=== PATIENT | female | born 1940 | race Caucasian/White ===

== ENCOUNTER → 2023-08-17 10:01 | Outpatient (REF) | payer OTHER, SELFPAY ==
[2023-08-17 10:26] LABS: HDL Cholesterol 42 mg/dl; LDL Cholesterol, Calculated 57 mg/dl; Total Cholesterol 126 mg/dl (50-199); Triglyceride 138 mg/dl (10-149); Very Low Density Lipoprotein 27 mg/dl (0-30)
== END ==
LOC: OLABN 10:01
PROVIDERS: ATTENDING PHYSICIAN Student in an Organized Health Care Education/Training Program
DX: E78.5 Hyperlipidemia, unspecified (principal)
CPT/HCPCS: 36415; 80061

== ENCOUNTER → 2024-04-01 13:19 | Outpatient (REF) | payer MEDICARE, MEDICAID, SELFPAY ==
[2024-04-01 21:55] LABS: Urine Albumin Trace (Neg - Trace); Urine Bilirubin Negative (Negative); Urine Character Very Cloudy (Clear); Urine Color Yellow; Urine Glucose Negative (Negative); Urine Ketone Negative (Negative); Urine Leukocyte 1+ (Negative); Urine Nitrite Negative (Negative); Urine Occult Blood Negative (Negative); Urine Specific Gravity 1.015 (<1.030); Urine Urobilinogen Negative (Neg - 1+)
[2024-04-01 22:45] LABS: Urine Bacteria Many (Negative); Urine Red Blood Cell 0-2 /HPF (0-2); Urine White Cell 60-70 /HPF (0-5)
== END ==
LOC: OLABN 13:19
PROVIDERS: ATTENDING PHYSICIAN Student in an Organized Health Care Education/Training Program
DX: R35.0 Frequency of micturition (principal); R82.90 Unspecified abnormal findings in urine
CPT/HCPCS: 81003; 81015; 87086

== ENCOUNTER 2024-06-12 22:41 | Inpatient (IN) | payer MEDICARE, MEDICAID, SELFPAY ==
[2024-06-12] VITALS (8 sets, daily range): BP systolic 79–104; BP diastolic 45–57
[2024-06-12] MEDS: NSS 1000 IV (20:09)
--- NOTE | 2024-06-12 20:09 | ED.GENMED ---
History of Present Illness
General
Chief Complaint: Breathing Problem
Source: family and ambulance crew
Exam Limitations: none
Time Seen by Provider: 06/12/24 19:15
History of Present Illness
History of Present Illness:
83-year-old female was found unresponsive in her room. Seen in our earlier. Patient was cyanotic hypotensive unresponsive. They put her on oxygen. She was breathing however. On medic arrival this was about 6:10 that this started, her color was
good on the nonrebreather. However they could not really palpate her pulse although they can hear her heart rate. She was given two 500 L bags of fluid with resolution of most of her symptoms. Her blood sugar was stable at the time. Patient does
not recall the event and had complaints
Past History
Past History
ED Past Medical History: HTN, Hypercholesterolemia and Other (Dementia)
ED Past Surgical History: Cardiac and Orthopedic
Review of Systems
Review of Systems
All Other Systems: Not applicable
Respiratory: Reports no symptoms
Cardiac: Denies chest pain
ABD/GI: Reports no symptoms
Phy Exam
Physical Exam
Physical Exam:
GENERAL: Alert and oriented. Elderly and frail. Hypotensive. Warm and dry and perfusing however
EYE: Orbits normal.
NECK: Supple, no significant adenopathy.
ENT: Pharynx without erythema
CARDIAC: Bradycardic and regular no murmur
LUNGS: Clear breath sounds,normal
ABDOMEN: Soft, without focal tenderness or distention
NEUROLOGICAL: Alert and oriented , grossly non-focal. Mild slurred this apparently has baseline
SKIN: Warm and dry, no rash or lesion, no discoloration, skin intact.
MUSCULOSKELETAL: No edema,no deformity.Good color
PSYCH: Normal and appropriate interaction.
Scores
Heart Failure Risk
Heart Failure Risk Score: Not Applicable
Sepsis
Sepsis Screening
Sepsis Assessment: Sepsis
Sepsis Screen
Sepsis Screen: Sepsis
Date: 06/12/24
Time: 23:03
Course
Orders/Labs/Results
Orders:
Orders
06/12/24 19:28
Electrocardiogram (*1) Stat
Reason for Study: Other
Other Reason for Exam: neuro symptoms
CT Head W/o Iv Contrast Urgent
Comment:
Reason For Exam: Transient loss of conscious
Cardiac Monitoring- Treatment ONCE
EKG- Treatment ONCE
IV Insert/Care/Rem.- Treatment PRN
Straight cath- Treatment ONCE
Pulse Ox/cont/shift [RESP] Stat
Quantity: 1
06/12/24 20:04
Complete Blood Count/With Diff Urgent
Comprehensive Metabolic Panel Urgent
Troponin I Urgent
06/12/24 20:05
0.9% Sodium Chloride 1000 ml [Nss] 1,000 ml IV BOLUS
06/12/24 20:36
Urinalysis Reflex To Culture Urgent
Date Specimen was Collected: 06/12/24
Time Specimen was Collected: 20:33
Urine Microscopic Reflex Cult Urgent
Urine Culture Urgent
ERNIE Source: U
Specimen Description:
Date Specimen was Collected: 06/12/24
Time Specimen was Collected: 20:33
06/12/24 21:26
D-Dimer Urgent
CefTRIAXone [Rocephin] 1,000 mg IV NOW STA
06/12/24 22:02
Lactate Level [Lactic Acid] Stat
Lactated Ringers [Lr] 500 ml IV BOLUS
06/12/24 22:18
Admit/Transfer Patient As Directed
Co-Sign Provider:
Level of Care: Inpatient admission
Assign to:: Telemetry
Physician / Group: Fran Cortez
Diagnosis: Clinical sepsis with UTI
Reason for Telemetry: Other
Other Reason for Telemetry: sepsis
Date to Stop Telemetry: 06/14/24
Time to Stop Telemetry: 11:00
Reason for Hospitalization: Clinical sepsis with UTI
Expected length of stay greater than two midnights?: Yes
ELOS- Estimated Length of Stay in days: 3
I certify the patient meets the requirements for IP care: Yes
PRN Pain Medication Management As Directed
May give lesser potent ordered pain med per pt: Yes
preference::
Protocol:: Medication orders for pain may be administered in a
manner that supports deferring to patient preference
when the pt is:
- Requesting an ordered lesser potent pain medication.
Least to most potent pain medications are defined
as: acetaminophen < NSAID < tramadol < opioids
(morphine, oxycodone, hydromorphone).
- Requesting a lesser dose of the same medication IF
ORDERED.
- Requesting a less intrusive route of administration
if both routes are prescribed by the provider (PO <
IV).
06/12/24 22:20
Code Status As Directed
Resuscitation Status: Do not resuscitate
Based on pt advanced directive or healthcare POA form: Yes
Physician note:: reviewed POLST from [facility]
DNR Bracelet Application ONCE
06/12/24 23:00
Flush (0.9% Sodium Chloride) [Flush (Nss)] See Dose Instructions IV PER PROTOCOL
06/14/24 11:00
DC Protocol for Telemetry ONCE
Abnormal Lab Results
06/12/24 06/12/24
20:04 20:36
RBC 3.03 L 10^6/uL
(4.20-5.40)
Hgb 10.2 L g/dL
(12.0-16.0)
Hct 31.8 L %
(37.0-47.0)
MCV 105.0 H fL
(81.0-99.0)
MCH 33.7 H pg
(27.0-31.0)
MCHC 32.1 L g/dL
(33.0-37.0)
Lymphocytes % 20.3 L %
(20.5-51.1)
Chloride 114 H mmol/L
(98-107)
BUN 49 H mg/dl
(7-17)
Creatinine 1.4 H mg/dL
(0.6-1.0)
Glucose 110 H mg/dl
(70-99)
Total Protein 5.5 L g/dl
(6.3-8.2)
Albumin 3.0 L g/dl
(3.5-5.0)
Urine Nitrite (Reflex) Positive A
(Negative)
Leukocyte Esterase Rfl 1+ A
(Negative)
Urine WBC (Reflex) 16-20 A /HPF
(0-5)
Urine Bacteria (Reflex) Many A
(Negative)
06/12/24 20:04
06/12/24 20:04
Vital Signs
Initial and Last Documented VS:
Initial Vital Signs
Temp Pulse Resp BP Pulse Ox
97.6 F 57 12 81/47 94
06/12/24 19:20 06/12/24 19:20 06/12/24 19:20 06/12/24 19:20 06/12/24 19:20
Last Documented Vital Signs
Temp Pulse Resp BP Pulse Ox
97.6 F 61 14 79/51 94
06/12/24 19:20 06/12/24 21:00 06/12/24 21:00 06/12/24 21:00 06/12/24 21:00
MDM/Problems Addressed
Differential Diagnosis Includes:
Prolonged episode of hypotension/unresponsiveness. Possibly cardiac arrhythmia issue. Doubt central neurologic issue. She currently appears relatively close to baseline although remains hypotensive. Workup in progress. No intubation or
aggressive management per the family.
*Radiology
Radiology exam reviewed: radiology read reviewed (No acute findings)
*Pulse Oximetry
Patient hypoxic: no
*EKG
Interpreted by ED Provider?: Yes
Interpretation: abnormal
Comparison EKG: no comparison EKG present
Heart Rate: 58
Rate: bradycardiac
Rhythm: sinus
[place]: normal axis
Interval: normal interval
QRS Pattern: normal QRS
Ischemia: non-specific ST changes
*Synthetic Resin Operator Interpretation
Rate: bradycardiac
Interpretation: abnormal
Heart Rate: 52
Rhythm: sinus
*Critical Care Note
Total Time (30-74mins, 75-104mins- exclusive of procedures): 45
Update Note
Update Note:
Labs are relatively stable. Mild renal insufficiency. Mild anemia. Mildly positive urine. Will admit for monitoring observation treatment of possible UTI
2124.... Patient has remained alert. Still mildly hypotensive. However no distress. No chest pain no shortness of breath. Unlikely to be pulmonary emboli but will do D-dimer as a screen. She does not recall having a penicillin allergy. Feel
cephalosporin would be safe.
ED Attending Note
-
Portions of this chart may have been created with voice recognition software.� Occasional wrong word or��sound alike� substitutions may have occurred due to the inherent limitations of voice recognition software.
Discharge Plan
Departure
Patient Disposition: Admit
Date of Disposition: 06/12/24
Time of Disposition: 21:12
Presentation/result/management discussed w/ accepting MD/DO: Hospitalist
Discharge Problem:
Prolonged hypotension/unresponsive, Possible UTI, Renal insufficiency
Interventions
Interventions:
*Risk Screen - Suicide Last Done: 06/12/24 19:20
*General Assessment Last Done: 06/12/24 19:20
*Neglect/Abuse Screening Last Done: 06/12/24 19:20
ED- Fall Risk Assessment Last Done: 06/12/24 19:20
*ED COVID-19 Vaccine History Last Done: 06/12/24 19:20
ED- Cardiac Assessment Last Done: 06/12/24 19:20
ED- Pulmonary Assessment Last Done: 06/12/24 19:20
[2024-06-12 20:16] LABS: % Basophils 0.3 % (0-2); % Eosinophils 1.3 % (0-6); % Immature Granulocytes 0.3 % (0-0.5); % Lymphocytes 20.3 % (20.5-51.1); % Monocytes 6.4 % (1.7-9.3); % Neutrophils 71.4 % (42.2-75.2); Absolute Eosinophils 0.1 10^3/uL (0-0.7); Absolute Lymphocytes 1.6 10^3/uL (1.2-3.4); Absolute Monocytes 0.5 10^3/uL (0.1-0.6); Absolute Neutrophils 5.5 10^3/uL (1.4-6.5); Hematocrit 31.8 % (37.0-47.0); Hemoglobin 10.2 g/dL (12.0-16.0); Mean Corp Hgb Conc. 32.1 g/dL (33.0-37.0); Mean Corpuscular Hgb 33.7 pg (27.0-31.0); Mean Platelet Volume 10.1 fL (7.4-10.4); Nucleated Red Blood Cells % 0 %; Platelet Count 231 10^3/uL (130-400); Red Blood Cell Count 3.03 10^6/uL (4.20-5.40); Red Cell Dist. Width 14.5 % (11.5-14.5); White Blood Cell Count 7.6 10^3/uL (4.8-10.8)
[2024-06-12 20:29] LABS: ALT (SGPT) 10 U/L (0-35); AST (SGOT) 17 U/L (14-36); Alkaline Phosphatase 77 U/L (38-126); Blood Urea Nitrogen 49 mg/dl (7-17); Calcium 8.8 mg/dl (8.4-10.2); Carbon Dioxide 24 mmol/L (22-30); Chloride 114 mmol/L (98-107); Glucose 110 mg/dl (70-99); Potassium 5.1 mmol/L (3.5-5.1); Sodium 144 mmol/L (135-145); Total Bilirubin 0.2 mg/dl (0.2-1.3); Total Protein 5.5 g/dl (6.3-8.2); eGFR 36.87
[2024-06-12 20:39] LABS: Troponin I < 0.012 ng/ml
[2024-06-12 20:41] LABS: Urine Albumin Trace (Neg - Trace); Urine Bilirubin Negative (Negative); Urine Character Clear (Clear); Urine Color Yellow; Urine Glucose Negative (Negative); Urine Ketone Negative (Negative); Urine Leukocyte 1+ (Negative); Urine Nitrite Positive (Negative); Urine Occult Blood Negative (Negative); Urine Urobilinogen Negative (Neg - 1+)
[2024-06-12 21:01] LABS: Urine Bacteria Many (Negative); Urine Red Blood Cell 0-2 /HPF (0-2); Urine White Cell 16-20 /HPF (0-5)
--- NOTE | 2024-06-12 22:08 | HPS.HSE ---
Family Physician
-
Family Physician: NOT KNOW UNKNOWN - PT DOES
Chief Complaint
-
AMS, hypotensive
History of Present Illness
This note serves as an addendum to the H&P by market research assistant CHIP Emilee Villalobos
HPI
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
- she was found unresponsive in her room.
- was cyanotic , hypotensive and unresponsive. but noted spontaneus breathing
- Started O2 at the fascilty
- On medic arrival , her color was good on the nonrebreather.
- S/P 2 x 500 cc IVF with resolution of most of her symptoms.
- Patient does not recall the event and had complaints
Medical History
Past Medical History
Past Medical History: Reports Dementia, HTN and Hypercholesterolemia
Past Surgical History: Reports Cardiac and Orthopedic
Social History
Unable to obtain full social history at this time due to: Dementia
Family History
Family History: Not pertinent
Allergies / Home Medications
Allergies reflects when Allergies were last updated in [facility].
Home Medications with original date entered in [facility]
Allergy/Medication List:
Allergies
Allergy/AdvReac Type Severity Reaction Status Date / Time
codeine Allergy Unknown Unknown Verified 06/12/24 19:30
metoprolol Allergy Unknown Unknown Verified 06/12/24 19:30
Sulfa (Sulfonamide Allergy Unknown Unknown Verified 06/12/24 19:30
Antibiotics)
Penicillins Allergy Unknown Verified 06/12/24 19:30
pregabalin [From Lyrica] Allergy Unknown Verified 06/12/24 19:30
If medication reconciliation has not been performed, why?: Dementia and Medication List N/A
Review of Systems
-
Unable to obtain full review of systems at this time due to: Dementia
Physical Exam
Vital Signs
Vital Signs
Temp Pulse Resp BP Pulse Ox
97.6 F 61 14 79/51 94
06/12/24 19:20 06/12/24 21:00 06/12/24 21:00 06/12/24 21:00 06/12/24 21:00
Physical Exam
General: Well Nourished, No Apparent Distress, Comfortable, Conversant and Other (preserve social skills )
HEENT: NormoCephalic, Anicteric and Other (wearing eye covered )
Respiratory: Clear
Cardiac: S1/S2 and Regular Rhythm
GI: Soft, Non Tender, Non Distended and Normal Bowel Sounds
Rectal: Deferred by Provider
Genito-urinary: Deferred by me
Neuro: Awake, Alert and Oriented (2023 near [place] )
Psych: Calm; No Apparent Dementia
Laboratory Results
-
06/12/24 20:04
06/12/24 20:04
Laboratory Results
Total Bilirubin 0.2 mg/dl (0.2-1.3) 06/12/24 20:04
AST 17 U/L (14-36) 06/12/24 20:04
ALT 10 U/L (0-35) 06/12/24 20:04
Alkaline Phosphatase 77 U/L (38-126) 06/12/24 20:04
Troponin I < 0.012 ng/ml 06/12/24 20:04
Data Reviewed
-
CT Scan: Image Personally Visualized and interpreted and Report Reviewed by me
Lab Data: Labs Reviewed by me
Impression/Plan
-
Vital Signs
Temp Pulse Resp BP Pulse Ox
97.6 F 61 14 79/51 94
06/12/24 19:20 06/12/24 21:00 06/12/24 21:00 06/12/24 21:00 06/12/24 21:00
Abnormal Lab Results
06/12/24 06/12/24
20:04 20:36
RBC 3.03 L
Hgb 10.2 L
Hct 31.8 L
MCV 105.0 H
MCH 33.7 H
MCHC 32.1 L
Lymphocytes % 20.3 L
Chloride 114 H
BUN 49 H
Creatinine 1.4 H
Glucose 110 H
Total Protein 5.5 L
Albumin 3.0 L
Urine Nitrite (Reflex) Positive A
Leukocyte Esterase Rfl 1+ A
Urine WBC (Reflex) 16-20 A
Urine Bacteria (Reflex) Many A
NEG TPNI
Pending DD
UA suggestive of UTI
UCx sent
EKG report
SINUS BRADYCARDIA WITH PREMATURE ATRIAL COMPLEXES WITH Aberrant conduction
INFERIOR INFARCT , AGE UNDETERMINED
ABNORMAL ECG
NO PREVIOUS ECGS AVAILABLE
HCT: no acute patho
ASSESSMENT & PLAN
TME due to UTI
S/P superimposed obtunded TME due to prolonged hypotension with underlying dementia
Presumed clinical sepsis with hypotension
HX allergy to PCN
- Resolved AMS s/p IV NS 1 L with improved BP tp 100/60
- NEG HCT
- Bolus IVF LR x 500 cc and observe BP
- Empiric IV CFTZ - tolerating
- check LA
- f/u UCx
- fall precautions
Hypotension
Suspect due to dehydration rather than sepsis
HX benign HTN
- Observe BP
Pre renal GAEL due to dehydration
- IVF
- f/u Cr
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
DM NH Res
- PT/OT
DVT Px: SQH
DNR per adv directives
IP TLM
[2024-06-12] MEDS: ROCEPHIN 1000 MG IV (22:26)
[2024-06-12] MEDS: LR 500 IV (22:42)
[2024-06-12] MEDS: FLUSH (NSS) 1 FLUSH IV (22:42)
[2024-06-12 23:26] LABS: Lactic Acid 1.2 mmol/L (0.7-2.0)
[2024-06-12 23:27] LABS: D-Dimer 1.23 ug/mlFEU (0.00-0.50)
[2024-06-13] VITALS (21 sets, daily range): BP systolic 70–153; BP diastolic 40–104; PULSE 67; O2SAT 97; BMI 27.0
[2024-06-13] MEDS: NSS 1000 IV ×2 (03:50→12:40)
[2024-06-13 06:36] LABS: Hemoglobin 10.1 g/dL (12.0-16.0); Mean Corp Hgb Conc. 30.6 g/dL (33.0-37.0); Mean Corpuscular Volume 107.8 fL (81.0-99.0); Mean Platelet Volume 10.3 fL (7.4-10.4); Platelet Count 218 10^3/uL (130-400); Red Blood Cell Count 3.06 10^6/uL (4.20-5.40); Red Cell Dist. Width 14.5 % (11.5-14.5)
[2024-06-13 07:00] LABS: Blood Urea Nitrogen 39 mg/dl (7-17); Calcium 8.6 mg/dl (8.4-10.2); Carbon Dioxide 22 mmol/L (22-30); Chloride 117 mmol/L (98-107); Glucose 72 mg/dl (70-99); Potassium 4.7 mmol/L (3.5-5.1); Sodium 146 mmol/L (135-145); eGFR 49.24
[2024-06-13] MEDS: HEPARIN 5000 UNITS SC ×3 (08:33→23:12)
--- NOTE | 2024-06-13 13:19 | W.PN.HOSP.TC ---
Today's Communication/Plan
-
Stop IVF
ok for diet
Resume PRN Oxy a
Resume Imdur
Assessment / Plan
Assessment / Plan
Physical Exam
General: Well Nourished, No Apparent Distress, Comfortable, Conversant and Other (preserve social skills )
HEENT: NormoCephalic, Anicteric and Other (wearing eye covered )
Respiratory: Clear
Cardiac: S1/S2 and Regular Rhythm
GI: Soft, Non Tender, Non Distended and Normal Bowel Sounds
Rectal: Deferred by Provider
Genito-urinary: Deferred by me
Neuro: Awake, Alert and Oriented (2023 near [place] )
Psych: Calm; No Apparent Dementia
TME due to UTI
S/P superimposed obtunded TME due to prolonged hypotension with underlying dementia
Presumed clinical sepsis with hypotension
HX allergy to PCN
- Resolved AMS s/p IV NS 1 L with improved BP tp 100/60
- NEG HCT
- Bolus IVF LR x 500 cc and observe BP
- Empiric IV CFTZ - tolerating
- check LA
- f/u UCx
- fall precautions
Hypotension
Suspect due to dehydration rather than sepsis
Resolved
# hypernatremia
# HX benign HTN
- Observe BP
Pre renal GAEL due to dehydration
Creatinine is coming down
- IVF
- f/u Cr
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
DM NH Res
- PT/OT
DVT Px: SQH
DNR per adv directives
Total time spent to see the patient on the floor, examine the patient, review data and lab results, discuss treatment plan with patient, nursing staff around 55 minutes.
Anticipated Discharge: 24 - 48 hours
Subjective/Interval History
-
Date of Service: June 13, 2024
She denies chest pain or sob
Objective Data
-
Labs:
Laboratory Results
06/13/24
06:21
WBC 7.0
Hgb 10.1 L
Hct 33.0 L
Plt Count 218
Sodium 146 H
Potassium 4.7
Chloride 117 H
Carbon Dioxide 22
BUN 39 H
Creatinine 1.1 H
Glucose 72
Calcium 8.6
Vital Signs:
Vital Signs
Temp Pulse Resp BP Pulse Ox
97.6 F 66 19 137/93 97
06/12/24 19:20 06/13/24 12:01 06/13/24 12:01 06/13/24 12:01 06/13/24 12:08
[2024-06-13] MEDS: IMDUR (EXTENDED RELEASE) 30 MG PO (15:47)
[2024-06-13] MEDS: NEURONTIN 100 MG PO (21:04)
[2024-06-13] MEDS: ZANAFLEX 4 MG PO (21:04)
[2024-06-13] MEDS: STERILE WATER FOR INJECTION 10 ML IV (21:05)
[2024-06-13] MEDS: ROCEPHIN 1000 MG IV (21:05)
[2024-06-13] MEDS: NSS 500 IV (23:31)
[2024-06-14] VITALS (7 sets, daily range): BP systolic 94–147; BP diastolic 46–78
[2024-06-14] MEDS: ZOFRAN 4 MG IV (08:59)
[2024-06-14] MEDS: HEPARIN 5000 UNITS SC ×2 (08:59→16:18)
[2024-06-14] MEDS: LOW STRENGTH ASPIRIN 81 MG PO (08:59)
[2024-06-14] MEDS: IMDUR (EXTENDED RELEASE) 30 MG PO (08:59)
[2024-06-14 09:37] LABS: Hematocrit 35.1 % (37.0-47.0); Hemoglobin 11.2 g/dL (12.0-16.0); Mean Corp Hgb Conc. 31.9 g/dL (33.0-37.0); Mean Corpuscular Hgb 33.8 pg (27.0-31.0); Mean Platelet Volume 10.4 fL (7.4-10.4); Platelet Count 212 10^3/uL (130-400); Red Blood Cell Count 3.31 10^6/uL (4.20-5.40); Red Cell Dist. Width 14.1 % (11.5-14.5); White Blood Cell Count 6.9 10^3/uL (4.8-10.8)
--- NOTE | 2024-06-14 09:49 | CM ---
Addendum entered by Alejandra Watts 06/14/24 11:07:
CP report sent to [facility] per their request.
Original Note:
Alpa is a skilled nursing resident at [facility] since 2020. She uses a w/c and is (I) in self-propelling around her unit. Transfers and bathing are dependent, dressing UB is mod A, LB is max A. She is able to feed herself with set-up.
Plan: Return to [facility] when medically cleared. CM will follow to coordinate transport and any other identified needs prior to discharge.
--- NOTE | 2024-06-14 10:18 | W.PN.HOSP.TC ---
Today's Communication/Plan
-
Await BMP result of today
Add Zofran IV PRN
contact precautions for now
c/w diet
c/w Rocephin.
Assessment / Plan
Assessment / Plan
Physical Exam
General: Well Nourished, No Apparent Distress, Comfortable, Conversant and Other (preserve social skills )
HEENT: NormoCephalic, Anicteric and Other (wearing eye covered )
Respiratory: Clear
Cardiac: S1/S2 and Regular Rhythm
GI: Soft, Non Tender, Non Distended and Normal Bowel Sounds
Rectal: Deferred by Provider
Genito-urinary: Deferred by me
Neuro: Awake, Alert and Oriented (2023 near [place] ), forgetful, she follows commands.
Psych: Calm; no agitation.
# N/V
no abdominal pain or tenderness on exam
Wll screen for Noro virus
Add IV Zofran, contact precautions for now
No fever or leukocytosis.
TME due to UTI with E Coli.
S/P superimposed obtunded TME due to prolonged hypotension with underlying dementia
Presumed clinical sepsis with hypotension
HX allergy to PCN
- Resolved AMS s/p IV NS 1 L with improved BP tp 100/60
- NEG HCT
- Bolus IVF LR x 500 cc and observe BP
- Empiric IV CFTZ - tolerating
- check LA
- f/u UCx
- fall precautions
Hypotension
Suspect due to dehydration rather than sepsis
Resolved
# hypernatremia
# HX benign HTN
- Observe BP
Pre renal GAEL due to dehydration
Creatinine is coming down
- IVF
- f/u Cr
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
DM NH Res
- PT/OT
DVT Px: SQH
DNR per adv directives
Total time spent to see the patient on the floor, examine the patient, review data and lab results, discuss treatment plan with patient, nursing staff around 55 minutes.
Anticipated Discharge: > 48 hours
Subjective/Interval History
-
Date of Service: June 14, 2024
No chest pain
No sob
Started to have N/V this morning, afebrile
Nurse: Had low BP last night and resolved with IVF
Objective Data
-
Labs:
Laboratory Results
06/14/24 06/14/24 06/14/24
06:32 09:20 10:11
WBC Cancelled 6.9
Hgb Cancelled 11.2 L
Hct Cancelled 35.1 L
Plt Count Cancelled 212
Sodium Cancelled Pending
Potassium Cancelled Pending
Chloride Cancelled Pending
Carbon Dioxide Cancelled Pending
BUN Cancelled Pending
Creatinine Cancelled Pending
Glucose Cancelled Pending
Calcium Cancelled Pending
Vital Signs:
Vital Signs
Temp Pulse Resp BP Pulse Ox
98.8 F 66 20 129/68 96
06/14/24 07:40 06/14/24 07:40 06/14/24 07:40 06/14/24 07:40 06/14/24 07:40
[2024-06-14 12:01] LABS: Blood Urea Nitrogen 28 mg/dl (7-17); Calcium 9.2 mg/dl (8.4-10.2); Carbon Dioxide 22 mmol/L (22-30); Chloride 115 mmol/L (98-107); Estimated Creatinine Clearance 37 ml/min; Glucose 76 mg/dl (70-99); Potassium 4.3 mmol/L (3.5-5.1); Sodium 146 mmol/L (135-145); eGFR 55.21
--- NOTE | 2024-06-14 15:30 | PN.CDI ---
Addendum entered and electronically signed by Alison Bee MD 06/14/24 15:43:
Hypoxia
Original Note:
CDI
- -
CDI:
Physician Documentation Request
Admit Date: 06/12/24 22:41
Dear Doctor Rohit,
Please review the following and provide your response in the progress notes.
Clinical Indicators:
EMS Transport:
#'...semi fowlers in bed with a non-rebreather mask applied,
#...high flow oxygen being administered.'
#Transported on O2 mask
#...High concentration O2 (10-25 LPM)
ED, 06/12
#...found unresponsive in her room.
#Patient was cyanotic hypotensive unresponsive.
#...They put her on oxygen.
#...She was breathing however.
#On medic arrival this was about 6:10 that this started,
#...her color was good on the nonrebreather.
#However they could not really palpate her pulse although they can hear her heart rate.
#She was given two 500 L bags of fluid with resolution of most of her symptoms.
Based on the above and your clinical assessment please clarify which of the following accurately represents the patient's respiratory status, POA:
Acute respiratory failure, POA, now resolved
Hypoxia
Other(please specify)
Additional information for Respiratory Failure:
Recognized criteria for Respiratory Failure (Source: [facility] May 2013)
Symptoms Please indicate type if known
1. Tachypnea, SOB, dyspnea Hypoxic
2. Use of accessory muscles Hypercapnic
3. Pallor or cyanosis Hypoxic and Hypercapnic
4. Anxiety or restlessness
5. Unable to speak in full sentences
Supplemental O2 of > 40% (5LPM) Intubation is not required
Use of terms such as suspected, likely, concern for, or probable (associated with a specific diagnosis that is being evaluated, monitored, or treated as if it exists) are acceptable and can be coded in the inpatient setting, when documented at the
time of discharge.
Thank you,
Melida Uribe RN BSN CCDS
CDI Specialist
please contact via tiger text
Please use your independent medical judgment in providing your response.
[2024-06-14] MEDS: ROCEPHIN 1000 MG IV (21:02)
[2024-06-14] MEDS: ZANAFLEX 4 MG PO (21:02)
[2024-06-14] MEDS: NEURONTIN 100 MG PO (21:02)
[2024-06-14] MEDS: STERILE WATER FOR INJECTION 10 ML IV (21:02)
[2024-06-14] MEDS: TYLENOL 650 MG PO (21:54)
[2024-06-15] VITALS (7 sets, daily range): BP systolic 114–160; BP diastolic 66–87; PULSE 80
[2024-06-15] MEDS: HEPARIN SC (04:02)
[2024-06-15] MEDS: HEPARIN 5000 UNITS SC ×3 (07:50→23:30)
[2024-06-15] MEDS: LOW STRENGTH ASPIRIN 81 MG PO (07:52)
[2024-06-15] MEDS: IMDUR (EXTENDED RELEASE) 30 MG PO (07:52)
[2024-06-15 07:56] LABS: Hematocrit 36.2 % (37.0-47.0); Hemoglobin 11.3 g/dL (12.0-16.0); Mean Corp Hgb Conc. 31.2 g/dL (33.0-37.0); Mean Corpuscular Hgb 32.9 pg (27.0-31.0); Mean Corpuscular Volume 105.5 fL (81.0-99.0); Mean Platelet Volume 10.6 fL (7.4-10.4); Platelet Count 215 10^3/uL (130-400); Red Blood Cell Count 3.43 10^6/uL (4.20-5.40); Red Cell Dist. Width 14.1 % (11.5-14.5); White Blood Cell Count 8.1 10^3/uL (4.8-10.8)
[2024-06-15 08:34] LABS: ALT (SGPT) 10 U/L (0-35); AST (SGOT) 20 U/L (14-36); Albumin 3.4 g/dl (3.5-5.0); Alkaline Phosphatase 96 U/L (38-126); Blood Urea Nitrogen 23 mg/dl (7-17); Calcium 9.3 mg/dl (8.4-10.2); Carbon Dioxide 22 mmol/L (22-30); Chloride 114 mmol/L (98-107); Estimated Creatinine Clearance 41 ml/min; Glucose 86 mg/dl (70-99); Magnesium 1.9 mg/dl (1.6-2.3); Potassium 4.3 mmol/L (3.5-5.1); Sodium 145 mmol/L (135-145); Total Bilirubin 0.3 mg/dl (0.2-1.3); eGFR > 60.00
--- NOTE | 2024-06-15 11:19 | CM ---
CM continues to follow for discharge to [facility] when medically stable.
Plan: Return to [facility] when medically cleared. CM will follow to coordinate transport and any other identified needs prior to discharge.
--- NOTE | 2024-06-15 11:27 | W.PN.HOSP.TC ---
Today's Communication/Plan
-
DC planning
Will dc on oral antibiotic
Assessment / Plan
Assessment / Plan
Physical Exam
General: Well Nourished, No Apparent Distress, Comfortable, Conversant and Other (preserve social skills )
HEENT: NormoCephalic, Anicteric and Other (wearing eye covered )
Respiratory: Clear
Cardiac: S1/S2 and Regular Rhythm
GI: Soft, Non Tender, Non Distended and Normal Bowel Sounds
Rectal: Deferred by Provider
Genito-urinary: Deferred by me
Neuro: Awake, Alert and Oriented (2023 near [place] ), forgetful, she follows commands.
Psych: Calm; no agitation.
# N/V
Resolved
Negative Noro virus and negative C diff
no abdominal pain or tenderness on exam
PRN IV Zofran.
No fever or leukocytosis.
TME due to UTI with E Coli.
S/P superimposed obtunded TME due to prolonged hypotension with underlying dementia
UTI with clinical sepsis with hypotension
HX allergy to PCN
- Resolved AMS s/p IV NS 1 L with improved BP tp 100/60
- NEG HCT
- Bolus IVF LR x 500 cc and observe BP
- Empiric IV CFTZ - tolerating
- fall precautions
Hypotension
Suspect due to dehydration rather than sepsis
Resolved
# hypernatremia
# HX benign HTN
- Observe BP
Pre renal GAEL due to dehydration
Creatinine is coming down
- IVF
- f/u Cr
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
DM NH Res
- PT/OT
DVT Px: SQH
DNR per adv directives
Total time spent to see the patient on the floor, examine the patient, review data and lab results, discuss treatment plan with patient, nursing staff around 55 minutes.
Anticipated Discharge: Within 24 hours
Subjective/Interval History
-
Date of Service: June 15, 2024
No chest pain
No abd pain
Objective Data
-
Labs:
Laboratory Results
06/15/24
07:36
WBC 8.1
Hgb 11.3 L
Hct 36.2 L
Plt Count 215
Sodium 145
Potassium 4.3
Chloride 114 H
Carbon Dioxide 22
BUN 23 H
Creatinine 0.9
Glucose 86
Calcium 9.3
Total Bilirubin 0.3
AST 20
ALT 10
Alkaline Phosphatase 96
Vital Signs:
Vital Signs
Temp Pulse Resp BP Pulse Ox
98 F 60 16 114/71 94
06/15/24 07:00 06/15/24 07:00 06/15/24 07:00 06/15/24 07:00 06/15/24 07:00
I&O
06/14/24 06/15/24 06/16/24
06:59 06:59 06:59
Intake Total 240 / 240
Balance 240 / 240
[2024-06-15] MEDS: ZOFRAN 4 MG IV (15:00)
[2024-06-15] MEDS: TYLENOL 650 MG PO (17:10)
[2024-06-15] MEDS: STERILE WATER FOR INJECTION 10 ML IV (21:31)
[2024-06-15] MEDS: ZANAFLEX 4 MG PO (21:32)
[2024-06-15] MEDS: NEURONTIN 100 MG PO (21:32)
[2024-06-15] MEDS: ROCEPHIN 1000 MG IV (21:32)
[2024-06-15] MEDS: FLUSH (NSS) 2 FLUSH IV (21:33)
[2024-06-16] VITALS (7 sets, daily range): BP systolic 106–196; BP diastolic 67–98
[2024-06-16] MEDS: ZOFRAN 4 MG IV (05:06)
--- NOTE | 2024-06-16 05:53 | PTCARENOTE ---
Patient continues with loose mucoid stool. Was brown but is now green. This morning after incontinence care done patient vomited 100ml brown liquid with some retching with mucus. Zofran as per prn order.
[2024-06-16] MEDS: COMPAZINE 10 MG IV (08:52)
--- NOTE | 2024-06-16 08:52 | W.PN.HOSP.TC ---
Today's Communication/Plan
-
Hold dc today
Give Morphine, possible opioid withdrawal
CT A/P
IVF
IV PPI
Anti-nausea
Assessment / Plan
Assessment / Plan
Physical Exam
General: Well Nourished, No Apparent Distress, Comfortable, Conversant and Other (preserve social skills )
HEENT: NormoCephalic, Anicteric and Other (wearing eye covered )
Respiratory: Clear
Cardiac: S1/S2 and Regular Rhythm
GI: Soft, Non Tender, Non Distended and Normal Bowel Sounds
Rectal: Deferred by Provider
Genito-urinary: Deferred by me
Neuro: Awake, Alert and Oriented (2023 near [place] ), forgetful, she follows commands.
Psych: Calm; no agitation.
# N/V with loose stools
DDx: infectious GE, Opioid withdrawal ?
Negative Noro virus and negative C diff
No fever, no leukocytosis
Will Given Compazine
will give IV morphine
Pt does not know whey she was on Oxycodone three times a day.
no abdominal pain or tenderness on exam
Add IVF for supportive care
Order PPI as IV dose BID
Order CT Abdomen and pelvis
Consult GI
TME due to UTI with E Coli.
S/P superimposed obtunded TME due to prolonged hypotension with underlying dementia
UTI with clinical sepsis with hypotension
HX allergy to PCN
Finishing ABx treatment.
# HX benign HTN
- Observe BP
c/w Imdur
# GAEL due to dehydration
resolved.
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
DM NH Res
- PT/OT
DVT Px: SQH
DNR per adv directives
Total time spent to see the patient on the floor, examine the patient, review data and lab results, discuss treatment plan with patient, son, nursing staff around 59 minutes.
Anticipated Discharge: Within 24 hours
Subjective/Interval History
-
Date of Service: June 16, 2024
N/V and diarrhea over night
Objective Data
-
Vital Signs:
Vital Signs
Temp Pulse Resp BP Pulse Ox
98.7 F 68 18 182/93 96
06/16/24 08:06 06/16/24 08:06 06/16/24 08:06 06/16/24 08:06 06/16/24 08:06
I&O
06/15/24 06/16/24 06/17/24
06:59 06:59 06:59
Intake Total 240 / 240
Balance 240 / 240
[2024-06-16] MEDS: PROTONIX IV 40 MG IV ×2 (08:53→20:30)
[2024-06-16] MEDS: MORPHINE SULFATE 2 MG IV ×2 (08:53→11:43)
[2024-06-16] MEDS: NSS (PRESERVATIVE FREE) 10 ML IV ×2 (08:54→20:30)
[2024-06-16] MEDS: D5/0.9% SODIUM CHLORIDE 1000 IV ×2 (08:56→17:22)
--- NOTE | 2024-06-16 09:00 | PTCARENOTE ---
Pt vomiting multiple times this morning, reporting she feels 'terrible'. Pt is not due yet for zofran which was given at 0500. Dr. Bee made aware who gave orders for compazine, morphine, protonix and IVF. All meds administered as ordered.
[2024-06-16] MEDS: OMNIPAQUE 50 ML PO (10:09)
--- NOTE | 2024-06-16 10:17 | CON.GI ---
Consultation
-
Date/Time Consultation Requested: 06/16/24,08:28
Date/Time Consultation Performed: 06/16/24,10:16
Requesting Provider: Alison Bee
Performing Provider: Betty Morel
Reason for Consultation: Vomiting and diarrhea
Medical History
Chief Complaint / HPI
Chief Complaint: Vomiting and diarrhea
History of Present Illness:
Patient is an 83-year-old female with past medical history of hypertension hypercholesterolemia and dementia, she was found unresponsive in her home and was hypertensive, she responded to fluid resuscitation and her head CT scan was negative for any
acute intracranial abnormality. She was admitted with a working diagnosis of hypernatremia, hypertension, nausea vomiting, TME due to UTI and prerenal GAEL due to dehydration. Her altered mental status improved,and her creatinine started to
improve. She also had nausea and vomiting, she tested negative for norovirus and C. difficile, no fever or leukocytosis, and she was responding well to as needed Zofran and was eating a regular diet.
She was supposed to get discharged today but she had 3 episodes of vomiting during the night and had 2 episodes of loose stools overnight. Did not had anything for dinner last night and did not have anything for breakfast today. Patient denied any
blood in stools or blood in vomiting. She does not feel hungry and she denies any fever, chills, shortness of breath, chest pain, abdominal pain, palpitations or headache. She she had no breakfast and she had no episodes since 5 AM. Her serum
electrolytes are within normal limits, sodium 145, potassium 4.3, bicarb 22, her creatinine is 0.9 LFTs within normal limits.
Past Medical History
Past Medical History: HTN, Hypercholesterolemia and Other (Dementia)
Past Surgical History: Cardiac and Orthopedic
Social History
Tobacco: Non-Smoker
Alcohol: None
Drug: None
Employment: Retired
Family History
Family History: Unable to Obtain
Allergies / Home Medications
Allergy/AdvReac Type Severity Reaction Status Date / Time
codeine Allergy Unknown Unknown Verified 06/12/24 19:30
metoprolol Allergy Unknown Unknown Verified 06/12/24 19:30
Sulfa (Sulfonamide Allergy Unknown Unknown Verified 06/12/24 19:30
Antibiotics)
Penicillins Allergy Unknown Verified 06/12/24 19:30
pregabalin [From Lyrica] Allergy Unknown Verified 06/12/24 19:30
�Medication �Instructions �Recorded
acetaminophen 500 mg tablet 1,000 mg PO DAILYPRN PRN mild 06/13/24
(Acetaminophen Extra Strength) pain/fever >100.4
albuterol sulfate 90 mcg/actuation 2 puff inhalation R Q6HPRN PRN sob 06/13/24
aerosol inhaler (Ventolin HFA)
aspirin 81 mg tablet,delayed 81 mg PO DAILY 06/13/24
release
bisacodyl 10 mg rectal suppository 10 mg DC DAILYPRN PRN constipation 06/13/24
fluticasone propionate 45 2 puff inhalation R BID 06/13/24
mcg-salmeterol 21 mcg/actuation
HFA inhaler (Advair HFA)
furosemide 20 mg tablet (Lasix) 20 mg PO MOWEFR@0830 swelling 06/13/24
gabapentin 300 mg capsule 300 mg PO TID 06/13/24
isosorbide mononitrate 30 mg 30 mg PO DAILY 06/13/24
tablet,extended release 24 hr
lisinopril 10 mg tablet 10 mg PO DAILY 06/13/24
lovastatin 10 mg tablet 10 mg PO QPM 06/13/24
magnesium hydroxide 400 mg/5 mL 2,400 mg PO HSPRN PRN constipation 06/13/24
oral suspension (Milk of Magnesia)
naloxone 0.4 mg/mL injection 0.4 mg SC DAILYPRN PRN opioid 06/13/24
solution overdose
nitroglycerin 0.4 mg sublingual 0.4 mg sublingual TIDPRN PRN angina 06/13/24
tablet (Nitrostat)
olopatadine 0.2 % eye drops 1 drp RIGHT EYE QPM 06/13/24
oxycodone 5 mg tablet 2.5 mg PO DAILY@0330 06/13/24
oxycodone 5 mg tablet 5 mg PO BID 06/13/24
tizanidine 4 mg tablet 4 mg PO HS 06/13/24
Review of Systems
-
All other systems: A 12 pt ROS was Negative except as stated above in HPI
Vital Signs
Temp Pulse Resp BP Pulse Ox
98.7 F 68 18 182/93 96
06/16/24 08:06 06/16/24 08:06 06/16/24 08:06 06/16/24 08:06 06/16/24 08:06
Physical Exam
Exam
General: Other (Elderly female,fragile looking,feeling very weak and tired)
HEENT: Anicteric and Moist Mucous Membranes
Respiratory: Clear and Other (No wheezes ,ronchi or rales)
Cardiac: S1/S2 and Regular Rhythm
GI: Soft, Non Tender and Normal Bowel Sounds
Genito-urinary: No Costovertebral Tender
Skin: Warm and Dry
Neuro: Oriented and No Motor Deficits
Psych: Calm and Other (pleasant and cooperative)
Results
WBC 8.1 10^3/uL (4.8-10.8) 06/15/24 07:36
Hgb 11.3 g/dL (12.0-16.0) L 06/15/24 07:36
Hct 36.2 % (37.0-47.0) L 06/15/24 07:36
MCV 105.5 fL (81.0-99.0) H 06/15/24 07:36
Plt Count 215 10^3/uL (130-400) 06/15/24 07:36
Absolute Neuts (auto) 5.5 10^3/uL (1.4-6.5) 06/12/24 20:04
Sodium 145 mmol/L (135-145) 12/11/24 07:36
Potassium 4.3 mmol/L (3.5-5.1) 06/15/24 07:36
Chloride 114 mmol/L (98-107) H 06/15/24 07:36
Carbon Dioxide 22 mmol/L (22-30) 06/15/24 07:36
BUN 23 mg/dl (7-17) H 06/15/24 07:36
Creatinine 0.9 mg/dL (0.6-1.0) 06/15/24 07:36
Calcium 9.3 mg/dl (8.4-10.2) 06/15/24 07:36
Total Bilirubin 0.3 mg/dl (0.2-1.3) 06/15/24 07:36
AST 20 U/L (14-36) 06/15/24 07:36
ALT 10 U/L (0-35) 06/15/24 07:36
Alkaline Phosphatase 96 U/L (38-126) 06/15/24 07:36
Diagnostic Image Results:
06/12/[address] Scan
FINDINGS:
Mild to moderate symmetric diffuse parenchymal atrophy. The ventricles are normal in size, configuration, and position for age. There is no intra- or extra-axial mass, hemorrhage, or fluid collection. No areas of abnormal mass effect or
attenuation are noted. There is mild subcortical, deep, and periventricular white matter low-attenuation, compatible with changes of chronic small vessel ischemic disease. Visualized paranasal sinuses are free of mucosal disease. No depressed
calvarial fracture.
IMPRESSION:
No acute intracranial abnormality noted.
Prior GI Procedures:None
EGD:
Colonoscopy:
Assessment / Plan
-
IMPRESSION
Patient is an 83-year-old female admitted with a working diagnosis of hypernatremia, hypertension, nausea vomiting, TME due to UTI and prerenal GAEL due to dehydration. Her altered mental status improved,and her creatinine started to improve. She
also had nausea and vomiting, she tested negative for norovirus and C. difficile, no fever or leukocytosis, and she was responding well to as needed Zofran and was eating a regular diet.
She was supposed to get discharged today but she had 3 episodes of vomiting during the night and had 2 episodes of loose stools overnight.
Serum electrolytes within normal limits
sodium 145, potassium 4.3, bicarb 22, her creatinine is 0.9 LFTs within normal limits
No focal deficit
No headache
No abdominal pain
No fever,chills
Denies melena,blood in stools or vomitus
Nurse confirmed green colored loose stools
On oxycodone for pain management
ASSESSMENT/PLAN
Could be from hospital acquired infections,ileus from opioid meds,hypernatremia,gastroenteritis,C.diff even though antigen/toxin is negative
Repeat urinalysis to confirm resolution of UTI
Repeat serum electrolytes to assess hypernatremia
Follow CT abdomen/pelvis for any intra abdominal pathology
keep the patient hydrated
Continue to monitor vitals
Advance diet as tolerated
-
-
Thank you for consultation and allowing me to participate in the patient's care. Please call the chemistry quality control technician GI physician during the after hours with any questions or concerns.
[2024-06-16] MEDS: VIBRAMYCIN 100 MG PO ×2 (10:22→20:30)
[2024-06-16] MEDS: IMDUR (EXTENDED RELEASE) 30 MG PO (10:22)
[2024-06-16] MEDS: LOW STRENGTH ASPIRIN 81 MG PO (10:22)
[2024-06-16] MEDS: HEPARIN 5000 UNITS SC ×3 (10:22→23:19)
[2024-06-16] MEDS: VISBIOME 1 CAP PO (10:23)
--- NOTE | 2024-06-16 11:59 | PTCARENOTE ---
BP found to be 196/[address] Bee notified and asked that second dose of morphine be given followed by recheck of BP.
--- NOTE | 2024-06-16 16:16 | CM ---
CM continues to follow for return to [facility] when medically stable.
Alpa was supposed to be discharged today, however she had 3 episodes of vomiting and 2 episodes of loose stools overnight.
Plan: Return to [facility] when medically cleared. CM will follow to coordinate transport and any other identified needs prior to discharge.
[2024-06-16] MEDS: ROXICODONE 5 MG PO (20:30)
[2024-06-16] MEDS: NEURONTIN 100 MG PO (21:02)
[2024-06-16] MEDS: ZANAFLEX 4 MG PO (21:02)
[2024-06-17] MEDS: D5/0.9% SODIUM CHLORIDE 1000 IV ×2 (01:26→08:55)
[2024-06-17 03:30] VITALS: BP 111/58
[2024-06-17] MEDS: D5/0.9% SODIUM CHLORIDE IV (07:33)
[2024-06-17 07:35] VITALS: BP 125/74
[2024-06-17] MEDS: VIBRAMYCIN 100 MG PO (08:29)
[2024-06-17] MEDS: IMDUR (EXTENDED RELEASE) 30 MG PO (08:30)
[2024-06-17] MEDS: NSS (PRESERVATIVE FREE) 10 ML IV (08:30)
[2024-06-17] MEDS: HEPARIN 5000 UNITS SC (08:30)
[2024-06-17] MEDS: LOW STRENGTH ASPIRIN 81 MG PO (08:30)
[2024-06-17] MEDS: ROXICODONE 5 MG PO (08:30)
[2024-06-17] MEDS: VISBIOME 1 CAP PO (08:30)
[2024-06-17] MEDS: PROTONIX IV 40 MG IV (08:31)
--- NOTE | 2024-06-17 09:55 | W.PN.GI.CBS2 ---
Addendum entered and electronically signed by Mike Andrade, DO 06/17/24 10:58:
D/w primary team this AM. Plans on discharging later today given improving symptoms. Will sign-off and re-engage if any questions or concerns.
Original Note:
Today's Communication / Plan
-
Reviewed CT imaging with likely resolving ileus and/or dysmotility secondary to chronic opioids. Limit additional opioids (ie not exceeding home dose) as much as possible. Continue regular diet as tolerated along with rest of supportive care as
below.
Assessment / Plan
-
#Mild SB Distension suspicious for Ileus vs SB Dysmotility (2/2 opioids)
#Abdominal Discomfort
#Nausea/Vomiting- Resolved
This is a 83-year-old female with past medical history of hypertension, hyperlipidemia, dementia was sent from the half-way as she was found unresponsive and in ER was hypotensive and was diagnosed with UTI and was started on antibiotics and she
had a CT head that was unremarkable and her mentation did improve but she has been having symptoms of nausea vomiting and diarrhea in the hospital and we were consulted. Her C. difficile and norovirus were negative she was pending discharge today
but then she had more episodes of nausea vomiting and diarrhea overnight so the discharge was held and we were consulted. Patient appears comfortable unable to provide much history because of underlying dementia denies abdominal pain though. Her
LFTs are normal she is scheduled for CT today. She was also started on a PPI today and antiemetics today by Dr. Bee. She also has been given a dose of morphine for possible opiate withdrawal causing symptoms.
Impression: Nausea/vomiting and looser stools which may be related to underlying UTI and from antibiotics or viral gastroenteritis versus ileus versus less likely obstruction since her abdominal exam is benign versus as suggested by Dr. Bee opiate
withdrawal and has received a dose of morphine today will need to see if her symptoms improve with that. Agree with CT to rule out possible obstruction. Her C. difficile and norovirus were negative. Agree with PPI and Zofran as needed. She is
currently on oral doxycycline which could also be contributing to her symptoms may need to switch her to IV antibiotics if unable to tolerate oral. Doubt central etiology CT head on admission was unremarkable. S/p recent CT imaging and appears to
be most consistent with resolving ileus rather than SBO given ongoing bowel function and/or SB dysmotility given her prior opioids (prior oxycodone?).
S/p CT Abd/pelvis 06/16/24: Mild small bowel distention, as described. No definite evidence of obstruction. Possible considerations include small bowel dysmotility/ileus versus low-grade partial small bowel obstruction (suspicious for ileus given
ongoing bowel function), mild sigmoid diverticulosis with possible low-grade diverticulitis, cholelithiasis, and moderate to advanced pancreatic parenchymal atrophy. Numerous small cystic structures measuring less than 1 cm. Possible considerations
include dilated side branches, numerous small pseudocysts, or branch type intraductal papillary mucinous neoplasm. No apparent mean pancreatic duct dilatation. No peripancreatic inflammatory changes
Recommendations:
- Continue regular diet as tolerated given ongoing improving symptoms
- Empiric IV PPI 40 mg BiD given previous c/f possible pill-induced esophagitis. May transition to PPI 40 mg x 2 weeks, then once daily
- Reviewed CT imaging and seems to be most c/w resolving ileus given bowel function and reassuring abdominal exam
- No concern for diverticulitis given her symptomatology and reassuring exam without any tenderness
- Has risk factors for SB dysmotility and likely from chronic opioids (2/2 chronic oxycodone)
- Favor limiting additional opioids as much as possible to promote bowel function
- No plans for endoscopic evaluation at this time
- Would not pursue MRI/MRCP as outpatient given small PCL's < 1 cm and advanced age
- Ongoing supportive care and anti-emetics PRN
- Rest of care per primary team
Discussed with primary internal medicine team this AM.
Subjective
Subjective
Date of Service: June 17, 2024
- S/p CT Abd/pelvis 06/16/24: Mild small bowel distention, as described. No definite evidence of obstruction. Possible considerations include small bowel dysmotility/ileus versus low-grade partial small bowel obstruction (suspicious for ileus given
ongoing bowel function), mild sigmoid diverticulosis with possible low-grade diverticulitis, cholelithiasis, and moderate to advanced pancreatic parenchymal atrophy. Numerous small cystic structures measuring less than 1 cm. Possible considerations
include dilated side branches, numerous small pseudocysts, or branch type intraductal papillary mucinous neoplasm. No apparent mean pancreatic duct dilatation. No peripancreatic inflammatory changes
- Otherwise, no acute events overnight
Resting comfortably and reports feeling much better this AM without any abdominal pain/discomfort or nausea/vomiting overnight or this AM. Passing flatus and having brown stools with ongoing bowel function.
Objective
Data Reviewed
Laboratory Data:
Laboratory Results
06/15/24 07:36
06/15/24 07:36
Laboratory Results
Magnesium 1.9 mg/dl (1.6-2.3) 06/15/24 07:36
Total Bilirubin 0.3 mg/dl (0.2-1.3) 06/15/24 07:36
AST 20 U/L (14-36) 06/15/24 07:36
ALT 10 U/L (0-35) 06/15/24 07:36
Alkaline Phosphatase 96 U/L (38-126) 06/15/24 07:36
Vital Signs and I&O:
Vital Signs
Temp Pulse Resp BP Pulse Ox
97.5 F 48 18 125/74 96
06/17/24 07:35 06/17/24 07:35 06/17/24 07:35 06/17/24 07:35 06/17/24 07:35
I&O
06/16/24 06/17/24 06/18/24
06:59 06:59 06:59
Intake Total 1930
Balance 1930
Physical Exam
Physical Exam
HEENT: Anicteric and Moist mucous membranes
Cardiology: Normal Sinus Rhythm
Pulmonary: Other (Normal WOB on room air)
GI: Soft, Non Distended and Non Tender
Extremities: No Edema
Neuro: Non Focal
[2024-06-17 11:30] VITALS: BP 166/69
--- NOTE | 2024-06-17 11:30 | W.PN.HOSP.TC ---
Today's Communication/Plan
-
Continue doxycycline to complete 7-day course
Bowel regimen at discharge
Discontinue lisinopril
Discharge today
Assessment / Plan
Assessment / Plan
#N/V with loose stools
Negative Noro virus and negative C diff
No fever, no leukocytosis
Will Given Compazine
will give IV morphine
Pt does not know whey she was on Oxycodone three times a day.
no abdominal pain or tenderness on exam
Spoke with GI, no contraindications for discharge today
Will provide bowel regimen at DC with home opioid regimen
TME due to UTI with E Coli.
S/P superimposed obtunded TME due to prolonged hypotension with underlying dementia
UTI with clinical sepsis with hypotension
HX allergy to PCN
Discharge on Doxycycline to complete 7 days
# HX benign HTN
- Observe BP
c/w Imdur
Discontinued lisinopril
# GAEL due to dehydration
resolved.
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
DM NH Res
- PT/OT
DVT Px: SQH
DNR per adv directives
Discussed with gastroenterology
Anticipated Discharge: Today
Subjective/Interval History
-
Date of Service: June 17, 2024
Seen and examined at the bedside. No acute events reported overnight. AFVSS this morning
She was having breakfast at time of my evaluation. Denied nausea or vomiting, other GI symptoms.
Denies any acute complaints, states she feels well today
Objective Data
-
Vital Signs:
Vital Signs
Temp Pulse Resp BP Pulse Ox
97.5 F 48 18 125/74 96
06/17/24 07:35 06/17/24 07:35 06/17/24 07:35 06/17/24 07:35 06/17/24 07:35
I&O
06/16/24 06/17/24 06/18/24
06:59 06:59 06:59
Intake Total 1930
Balance 1930
Review of Systems
-
History Source: Patient
All other systems: Reviewed and negative
Physical Exam
-
General: Well Developed, Well Nourished, No Apparent Distress, Comfortable and Other (Frail female)
HEENT: Normocephalic, Atraumatic, Moist Mucous Membranes and Anicteric
Respiratory: Clear to Auscultation and Non Labored Respirations
Cardiac: Regular Rhythm and S1/S2; Negative Murmur, Rub or Gallop
GI: Soft, Nontender, Nondistended and Normal Bowel Sounds
Musculoskeletal: No Clubbing, No Cyanosis and No Edema
Skin: Warm, Dry and Normal Turgor; Negative Rash or Jaundice
Neuro: Awake, Alert, Oriented and Nonfocal/Grossly Intact
Psych: Calm
--- NOTE | 2024-06-17 11:55 | CM ---
Alpa is ready for discharge back to [facility] today. Ambulance transport arranged for 1:45pm.
KETTY met with Alpa to make her aware of discharge for today; IMM reviewed and Alpa gave verbal consent for signature.
KETTY notified Jesenia Eubanks regarding pt's return today and transport time. I spoke with her son to make him aware of discharge, as well.
Plan: Ambulance transport for return to [facility] today at 1:45.
Report: [phone]
--- NOTE | 2024-06-17 12:51 | PTCARENOTE ---
Addendum entered by Nika Guardado RN 06/17/24 14:05:
Patient left via ambulance without complaint.
Addendum entered by Nika Guardado RN 06/17/24 13:38:
Peripheral IV and tele removed. Patient awaiting transport.
Original Note:
Report called to ABDIRIZAK Fragoso at [facility]. Patient for ambulance garbage pick up worker at 1345 today.
--- NOTE | 2024-06-17 14:52 | W.DCSUMMARY ---
Discharge Summary
Discharge Data
Date of Admission: 06/12/24
Date of Discharge: 06/17/24
-
Pending Results: No
Hospital Course
83-year-old female with dementia, HTN, HLD, PAD/AAA that presented to the hospital with altered mental status. Likely toxic metabolic encephalopathy in the context of urinary tract infection. Was started on IV antibiotics empirically with urine
culture. Urine culture ultimately returned positive for pansensitive E. coli. Was transition to doxycycline, prescription provided at discharge to complete 10 days of antibiotics. Patient with known penicillin allergy. During her hospitalization
her sedating medications including home oxycodone regimen were held. Developed nausea and vomiting suspected to be secondary to opioid withdrawal. Evaluated by GI, infectious workup unremarkable, cannot rule out resolving ileus in the context of
chronic opioids. She did have normal oral intake and bowel status prior to discharge. Was prescribed daily bowel regimen at time of discharge. Recommended to follow-up with family physician within 1 to 2 weeks of discharge from hospital
Discharge Plan
-
Patient Disposition: Jail/SNF
Discharge Diagnosis/Procedures: Urinary tract infection
Toxic metabolic encephalopathy
Condition: Good
Diet: No restrictions
Activity: As tolerated
Driving Restrictions: No driving
Bathing Restrictions: None
Other Services: PT and OT
Activity Restrictions/Additional Instructions:
Schedule follow-up appointment with family physician, should be seen in office within 1 to 2 weeks of discharge
Instructions: Urinary tract infections in adults
Referrals:
UNKNOWN - PT DOES,NOT KNOW [Family Provider] -
Additional Discharge Medication Instructions: Continue with doxycycline 100 mg every 12 hours for 5 more days after discharge
Reduce gabapentin to 100 mg before bedtime only
Continue MiraLAX and senna as prescribed for the next week
Stop taking lisinopril
Prescriptions:
New
gabapentin 100 mg Capsule
100 mg PO HS 30 Days Qty: 30 0RF
doxycycline hyclate 100 mg Capsule
100 mg PO Q12 5 Days Qty: 10 0RF
sennosides [senna] 8.6 mg tablet
8.6 mg PO BID 7 Days Qty: 14 0RF
polyethylene glycol 3350 [Miralax] 17 gram powder in packet
17 g PO DAILY 7 Days Qty: 14 0RF
Continued
oxycodone 5 mg Tablet
2.5 mg PO DAILY@0330
tizanidine 4 mg Tablet
4 mg PO HS
naloxone 0.4 mg/mL Solution
0.4 mg SC DAILYPRN PRN (Reason: opioid overdose)
isosorbide mononitrate 30 mg Tablet Extended Release 24 Hr
30 mg PO DAILY
lovastatin 10 mg Tablet
10 mg PO QPM
aspirin 81 mg Tablet,Delayed Release (Dr/Ec)
81 mg PO DAILY
acetaminophen [Acetaminophen Extra Strength] 500 mg Tablet
1,000 mg PO DAILYPRN PRN (Reason: mild pain/fever >100.4)
magnesium hydroxide [Milk of Magnesia] 400 mg/5 mL Suspension
2,400 mg PO HSPRN PRN (Reason: constipation)
bisacodyl 10 mg Suppository
10 mg MO DAILYPRN PRN (Reason: constipation)
nitroglycerin [Nitrostat] 0.4 mg Tablet, Sublingual
0.4 mg SUBLINGUAL TIDPRN PRN (Reason: angina)
furosemide [Lasix] 20 mg Tablet
20 mg PO MOWEFR@0830
albuterol sulfate [Ventolin HFA] 90 mcg/actuation Hfa Aerosol Inhaler
2 puff INHALATION R Q6HPRN PRN (Reason: sob)
oxycodone 5 mg Tablet
5 mg PO BID
fluticasone propion-salmeterol [Advair HFA] 45-21 mcg/actuation Hfa Aerosol Inhaler
2 puff INHALATION R BID
olopatadine 0.2 % Drops
1 drp RIGHT EYE QPM
Discontinued
lisinopril 10 mg Tablet
10 mg PO DAILY
gabapentin 300 mg Capsule
300 mg PO TID
Discharge Orders:
Discharge Patient (As Directed); Ordered 06/17/24
Ordered By: Severiano Street
Discharge Date and Time
Discharge Date/Time: 06/17/24 14:07
Print Language: MALDIVIAN
== END 2024-06-17 14:07 | DRG 871 ==
LOC: 4 EAST ACU 22:41
PROVIDERS: Internal Medicine; Nurse Practitioner Family; ADMITTING PHYSICIAN Internal Medicine; ATTENDING PHYSICIAN Internal Medicine; EMERGENCY PHYSICIAN Emergency Medicine; OTHER PHYSICIAN Internal Medicine Gastroenterology
DX: A41.9 Sepsis, unspecified organism (principal); G92.8 Other toxic encephalopathy; N39.0 Urinary tract infection, site not specified; N17.9 Acute kidney failure, unspecified; K56.7 Ileus, unspecified; Z66 Do not resuscitate; R09.02 Hypoxemia
CPT/HCPCS: 51701; 70450; 74177; 80048; 80053; 81003; 81015; 83605; 83735; 84484; 85025; 85027; 85379; 87070; 87086; 87088; 87186; 87324; 87449; 87798; 93005; 96360; 97166; 97530; 99291; Q9967

== ENCOUNTER → 2024-07-23 13:51 | Outpatient (REF) | payer MEDICARE, OTHER, SELFPAY | LOC: OLABN 13:51 | PROVIDERS: ATTENDING PHYSICIAN Student in an Organized Health Care Education/Training Program | DX: R09.89 Other specified symptoms and signs involving the circulatory and respiratory systems (principal) | CPT/HCPCS: 87502 ==

== ENCOUNTER → 2024-11-23 09:37 | Outpatient (REF) | payer MEDICARE, OTHER, SELFPAY ==
[2024-11-23 11:31] LABS: Blood Urea Nitrogen 18 mg/dl (7-17); Calcium 9.2 mg/dl (8.4-10.2); Carbon Dioxide 27 mmol/L (22-30); Chloride 112 mmol/L (98-107); Glucose 88 mg/dl (70-99); HDL Cholesterol 42 mg/dl; LDL Cholesterol, Calculated 46 mg/dl; Potassium 4.2 mmol/L (3.5-5.1); Sodium 142 mmol/L (135-145); Total Cholesterol 112 mg/dl (50-199); Triglyceride 124 mg/dl (10-149); Very Low Density Lipoprotein 24 mg/dl (0-30); eGFR > 60.00
== END ==
LOC: OLABN 09:37
PROVIDERS: ATTENDING PHYSICIAN Student in an Organized Health Care Education/Training Program
DX: E78.5 Hyperlipidemia, unspecified (principal)
CPT/HCPCS: 36415; 80048; 80061

== ENCOUNTER → 2025-04-21 10:00 | Outpatient (REF) | payer MEDICARE, OTHER, SELFPAY ==
[2025-04-21 11:50] LABS: Hematocrit 38.2 % (37.0-47.0); Hemoglobin 11.9 g/dL (12.0-16.0); Mean Corp Hgb Conc. 31.2 g/dL (33.0-37.0); Mean Corpuscular Volume 104.1 fL (81.0-99.0); Nucleated Red Blood Cells % 0 %; Platelet Count 203 10^3/uL (130-400); Red Cell Dist. Width 14.5 % (11.5-14.5)
[2025-04-21 12:12] LABS: Urine Character Clear (Clear)
[2025-04-21 12:18] LABS: Urine Red Blood Cell 0-2 /HPF (0-2); Urine Squamous Cell 21-25 /LPF (Few); Urine White Cell 21-25 /HPF (0-5)
[2025-04-21 13:20] LABS: Blood Urea Nitrogen 19 mg/dl (7-17); Calcium 9.2 mg/dl (8.4-10.2); Carbon Dioxide 26 mmol/L (22-30); Chloride 111 mmol/L (98-107); Glucose 85 mg/dl (70-99); Magnesium 1.9 mg/dl (1.6-2.3); Potassium 4.1 mmol/L (3.5-5.1); Sodium 140 mmol/L (135-145); eGFR > 60.00
== END ==
LOC: OLABN 10:00
PROVIDERS: ATTENDING PHYSICIAN Student in an Organized Health Care Education/Training Program
DX: E78.5 Hyperlipidemia, unspecified (principal); R60.9 Edema, unspecified; F06.4 Anxiety disorder due to known physiological condition; N39.0 Urinary tract infection, site not specified
CPT/HCPCS: 36415; 80048; 81003; 81015; 83735; 85025; 87077; 87086; 87186